=== PATIENT | female | born 1960 | race Caucasian/White ===

== ENCOUNTER 2019-03-01 13:16 | Emergency (ER) | payer BC, SELFPAY ==
[2019-03-01] MEDS ORDERED: NA CHLORIDE 0.9% 1,000 ML ONE (14:14)
[2019-03-01 14:31] LABS: Absolute Lymphocytes (CBC) 1.1 K/uL (0.7-4.9); Basophils % 0.7 % (0-1.3); Hematocrit 34.1 % (36.0-45.0); Lymphocytes % 15.5 % (15.3-44.8); RBC Red Blood Cell Count 4.67 M/uL (3.86-4.86)
[2019-03-01 14:43] LABS: Albumin 3.5 g/dL (3.4-5.0); Bilirubin Total 0.5 mg/dL (0.2-1.0); Magnesium 1.6 mg/dL (1.8-2.4); Protein, Total 7.4 g/dL (6.4-8.2)
[2019-03-01 14:48] LABS: Potassium 2.8 mmol/L (3.5-5.1)
[2019-03-01] MEDS ORDERED: MAGNESIUM SULFATE 1 gm IVPB 1 GM/100 ML BAG IV ONE (15:17)
[2019-03-01] MEDS ORDERED: NS KCL 20MEQ 1,000 ML IV ONE (15:17)
--- NOTE | 2019-03-01 15:22 | RAD REPORT ---
EXAM DESCRIPTION: CT - Abdomen Pelvis W Contrast - 03/01/2019 3:11 pm CLINICAL HISTORY: hx of gastric sleeve, retroperitoneal pain / left flank floridalma COMPARISON: None. TECHNIQUE: Biphasic, helical CT imaging of the abdomen and pelvis was performed following 100 ml non -ionic IV contrast. Oral contrast was given. All CT scans are performed using dose optimization technique as appropriate and may include automated exposure control or mA/KV adjustment according to patient size. FINDINGS: No suspicious findings in the lung bases. The liver, spleen, and pancreas show no suspicious findings. Cholecystectomy clips are present. No bi liary tree dilatation. Symmetric renal function is seen with no hydronephrosis or suspicious renal mass. No pyelonephritis o r acute parenchymal process. No bladder abnormalities. No adrenal abnormalities. Uterus is absent. Ov yarelis are absent or atrophic. No adnexal mass. Postsurgical changes are noted to the stomach. A very minimal hiatal hernia is present. No gastric wa ll thickening or edema. No dilated large or small bowel. Minimal diverticulosis. No acute GI process seen. No free air, free fluid or inflammatory stranding. No hernia, mass or bulky lymphadenopathy. No suspicious bony findings. Degenerative changes are present at the L5-S1 disc level. Disc bulge at L4-5. CT imaging is limited in the ability to assess central canal. IMPRESSION: Contrast enhanced CT abdomen and pelvis showing no acute finding. Nonacute findings det darlene in the body of the report.
--- NOTE | 2019-03-01 17:35 | ER ---
Nurse's Notes [facility] Name: Sri Lynn Age: 58 yrs Sex: Female : 1960 Arrival Date: 03/01/2019 Time: 13:19 Bed 7 Private MD: Diagnosis: Left flank pain;Inability to tolerate PO;Multiple metabolic derangements;Dehydration;Malnutrition;Hyponatremia;Hypokalemia;Hypochloremia;Hypomagnese maximo;Post surgical complication;Hx of laproscopic sleeve gastrectomy Presentation: 03/01 13:24 Presenting complaint: Vomiting and left mid back pain 9/10 upon waking today. Hx of hb hernia repair and gastric sleeve surgery in [place] 01/14. Transition of care: patient was not received from another setting of care. Onset of symptoms was March 01, 2019. Risk Assessment: Do you want to hurt yourself or someone else? Patient reports no desire to harm self or others. Care prior to arrival: None. 13:24 Method Of Arrival: Ambulatory hb 13:24 Acuity: LEN 3 hb 14:00 Initial Sepsis Screen: Does the patient meet any 2 criteria? No. Patient's initial jl7 sepsis screen is negative. Does the patient have a suspected source of infection? No. Patient's initial sepsis screen is negative. Historical: - Allergies: 13:29 Codeine; hb 13:29 PENICILLINS; hb - Home Meds: 13:29 lisinopril 20 mg Oral tab 1 tab once daily [Active]; hb - PMHx: 13:29 Hypertension; hb - PSHx: 13:29 Gastric Sleeve; Hernia repair; hb - Immunization history:: Adult Immunizations up to date. - Social history:: Smoking status: Patient/guardian denies using tobacco. - Ebola Screening: : Patient negative for fever greater than or equal to 101.5 degrees Fahrenheit, and additional compatible Ebola Virus Disease symptoms Patient denies travel to an Ebola-affected area in the 21 days before illness onset. Screenin:40 Abuse screen: Denies threats or abuse. Denies injuries from another. Nutritional jl7 screening: pt report inability to eat and drink for the past 7 weeks post gastric sleeve, ERD aware. Tuberculosis screening: No symptoms or risk factors identified. 14:19 Fall Risk IV access (20 points). Total Nielson Fall Scale indicates No Risk (0-24 pts). jl7 Assessment: 13:40 General: Appears in no apparent distress. uncomfortable, Behavior is calm, cooperative, jl7 appropriate for age. Pain: Complains of pain in right mid back Pain does not radiate. Pain currently is 5 out of 10 on a pain scale. Pain began 2-3 days ago. Is continuous. Neuro: Level of Consciousness is awake, alert, obeys commands, Oriented to person, place, time, situation. Cardiovascular: Patient's skin is warm and dry. Respiratory: Airway is patent Respiratory effort is even, unlabored, Respiratory pattern is regular, symmetrical. GI: Abdomen is round non-distended, Reports anorexia, nausea, vomiting, since 01/14/19. : Reports pain in right flank(s). Derm: Skin is pink, warm \\T\\ dry. 14:00 Reassessment: Pt reports Unable to provide urine sample at this time, states "I haven't jl7 had any fluids.". 14:40 Reassessment: Patient appears in no apparent distress at this time. No changes from jl7 previously documented assessment. Patient and/or family updated on plan of care and expected duration. Pain level reassessed. Patient is alert, oriented x 3, equal unlabored respirations, skin warm/dry/pink. 16:00 Reassessment: Patient appears in no apparent distress at this time. No changes from jl7 previously documented assessment. Patient and/or family updated on plan of care and expected duration. Pain level reassessed. Patient is alert, oriented x 3, equal unlabored respirations, skin warm/dry/pink. 16:47 Reassessment: Instructed pt as soon as fluids are done infusing we need to collect the jl7 urine, pt verbalized understanding. 17:34 Reassessment: Patient appears in no apparent distress at this time. Patient and/or jl7 family updated on plan of care and expected duration. Pain level reassessed. Patient is alert, oriented x 3, equal unlabored respirations, skin warm/dry/pink. Patient states feeling better. Patient states symptoms have improved. Vital Signs: 13:24 BP 99 / 75; Pulse 102; Resp 16; Temp 97.1(TE); Pulse Ox 96% on R/A; Weight 122.47 kg; hb Height 5 ft. 5 in. (165.10 cm); Pain 5/10; 15:00 BP 99 / 72; Pulse 84; Resp 16 S; Pulse Ox 98% on R/A; jl7 16:00 BP 97 / 70; Pulse 75; Resp 16 S; Pulse Ox 100% on R/A; jl7 16:51 BP 99 / 60; Pulse 75; Resp 16 S; Pulse Ox 97% on R/A; jl7 17:34 BP 91 / 52; Pulse 72; Resp 16 S; Pulse Ox 100% on R/A; jl7 13:24 Body Mass Index 44.93 (122.47 kg, 165.10 cm) hb ED Course: 13:19 Patient arrived in ED. mr 13:24 Arm band placed on. hb 13:27 Triage completed. hb 13:30 Nikolai Willson RN is Primary Nurse. jl7 13:41 Moshe Puente MD is Attending Physician. ps1 13:42 ED physician to see patient. jl7 14:20 Initial lab(s) drawn, by ED staff, sent to lab. Inserted saline lock: 20 gauge in right jl7 antecubital area, using aseptic technique. Blood collected. 14:23 Patient has correct armband on for positive identification. Placed in gown. Bed in low jl7 position. Call light in reach. Side rails up X 1. Pulse ox on. NIBP on. Warm blanket given. 15:11 CT Abd/Pelvis - PO and IV Contrast In Process Unspecified. EDMS 17:56 No provider procedures requiring assistance completed. Patient transferred, IV remains jl7 in place. intact, No redness/swelling at site. Administered Medications: 14:24 Drug: NS 0.9% 1000 ml Route: IV; Rate: 1 bolus; Site: right antecubital; jl7 15:30 Follow up: Response: No adverse reaction; IV Status: Completed infusion; IV Intake: jl7 1000ml 15:27 Drug: Potassium Chloride 20 mEq Route: IV; Rate: 1000 ml/hr; Site: right antecubital; jl7 17:33 Follow up: IV Status: Completed infusion; IV Intake: 1000ml jl7 15:28 Drug: Magnesium Sulfate 1 grams Route: IVPB; Infused Over: 1 hrs; Site: right jl7 antecubital; 16:28 Follow up: Response: No adverse reaction; IV Status: Completed infusion jl7 17:33 Drug: Banana Bag - (NS 0.9% 1000 ml, foLIC Acid 1 mg, Thiamine 100 mg, Multivitamin 1 jl7 amp) Route: IV; Rate: calculated rate; Site: right antecubital; 17:33 Follow up: IV Status: Infusion continued upon transfer jl7 Intake: 15:30 IV: 1000ml; Total: 1000ml. jl7 17:33 IV: 1000ml; Total: 2000ml. jl7 Outcome: 17:34 ER care complete, transfer ordered by . ps1 17:56 Transferred by ground EMS to [facility], Transfer form completed. jl7 X-rays sent w/ patient. 17:56 Condition: stable 17:56 Discharge instructions given to patient, Instructed on the need for transfer, Demonstrated understanding of instructions. 17:57 Patient left the ED. jl7 Signatures: Dispatcher [employer] [facility] Floyd Isadora Chyna Mandujano RN RN Nikolai Willson RN RN jl7 Moshe Puente MD MD ps1 Corrections: (The following items were deleted from the chart) 16:51 16:48 BP 90 / 48; Pulse 75bpm; Resp 16bpm; Spontaneous; Pulse Ox 100% RA; jl7 jl7
--- NOTE | 2019-03-01 17:35 | EDPHYS ---
Physician Documentation [facility] Name: Sri Lynn Age: 58 yrs Sex: Female : 1960 Arrival Date: 03/01/2019 Time: 13:19 Bed 7 Private MD: ED Physician Moshe Puente HPI: 03/01 14:16 This 58 yrs old Female presents to ER via Ambulatory with complaints of ps1 Vomiting. 14:16 patient had a gastric sleeve and hiatal hernia repair in [place] 7 weeks ago. States ps1 that she has had difficulty in eating and drinking since then and essentially not tolerating PO. She has lost 42 lbs since surgery. No fever. Complains of dehydration. . Historical: - Allergies: 13:29 Codeine; hb 13:29 PENICILLINS; hb - Home Meds: 13:29 lisinopril 20 mg Oral tab 1 tab once daily [Active]; hb - PMHx: 13:29 Hypertension; hb - PSHx: 13:29 Gastric Sleeve; Hernia repair; hb - Immunization history:: Adult Immunizations up to date. - Social history:: Smoking status: Patient/guardian denies using tobacco. - Ebola Screening: : Patient negative for fever greater than or equal to 101.5 degrees Fahrenheit, and additional compatible Ebola Virus Disease symptoms Patient denies travel to an Ebola-affected area in the 21 days before illness onset. ROS: 14:16 Eyes: Negative for injury, pain, redness, and discharge, Neck: Negative for injury, ps1 pain, and swelling, Cardiovascular: Negative for chest pain, palpitations, and edema, Respiratory: Negative for shortness of breath, cough, wheezing, and pleuritic chest pain, MS/Extremity: Negative for injury and deformity, Skin: Negative for injury, rash, and discoloration, Neuro: Negative for headache, weakness, numbness, tingling, and seizure. 14:16 Constitutional: Positive for fatigue, weight loss. 14:16 Abdomen/GI: Positive for nausea. 14:16 : Positive for flank pain. Exam: 14:16 Constitutional: This is a well developed, well nourished patient who is awake, alert, ps1 and in no acute distress. Head/Face: Normocephalic, atraumatic. Eyes: Pupils equal round and reactive to light, extra-ocular motions intact. Lids and lashes normal. Conjunctiva and sclera are non-icteric and not injected. Chest/axilla: Normal chest wall appearance and motion. Nontender with no deformity. No lesions are appreciated. Cardiovascular: Regular rate and rhythm. No gallops, murmurs, or rubs. Normal PMI, no JVD. No pulse deficits. Respiratory: Lungs have equal breath sounds bilaterally, clear to auscultation and percussion. No rales, rhonchi or wheezes noted. No increased work of breathing, no retractions or nasal flaring. Skin: Warm, dry with normal turgor. Normal color with no rashes, no lesions, and no evidence of cellulitis. MS/ Extremity: Pulses equal, no cyanosis. Neurovascular intact. Full, normal range of motion. 14:16 : CVA tenderness, on the left. Vital Signs: 13:24 BP 99 / 75; Pulse 102; Resp 16; Temp 97.1(TE); Pulse Ox 96% on R/A; Weight 122.47 kg; hb Height 5 ft. 5 in. (165.10 cm); Pain 5/10; 15:00 BP 99 / 72; Pulse 84; Resp 16 S; Pulse Ox 98% on R/A; jl7 16:00 BP 97 / 70; Pulse 75; Resp 16 S; Pulse Ox 100% on R/A; jl7 16:51 BP 99 / 60; Pulse 75; Resp 16 S; Pulse Ox 97% on R/A; jl7 17:34 BP 91 / 52; Pulse 72; Resp 16 S; Pulse Ox 100% on R/A; jl7 13:24 Body Mass Index 44.93 (122.47 kg, 165.10 cm) hb MDM: 14:07 Patient medically screened. ps1 17:35 Data reviewed: vital signs, nurses notes, lab test result(s), radiologic studies. ps1 Counseling: I had a detailed discussion with the patient and/or guardian regarding: the historical points, exam findings, and any diagnostic results supporting the discharge/admit diagnosis, lab results, the need to transfer to another facility, for higher level of care, [facility] does not immediately have the required specialist, Need for EGD. . 03/01 14:07 Order name: CBC with Diff; Complete Time: 14:50 ps1 03/01 14:07 Order name: CMP; Complete Time: 14:50 [facility] 03/01 14:07 Order name: Lipase; Complete Time: 14:50 [facility] 03/01 14:07 Order name: Lactate; Complete Time: 14:50 [facility] 03/01 14:07 Order name: Magnesium; Complete Time: 14:50 [facility] 03/01 17:41 Order name: Urine Microscopic Only [facility] 03/01 14:07 Order name: Urine Dipstick-Ancillary (obtain specimen); Complete Time: 17:40 [facility] 03/01 14:07 Order name: CT Abd/Pelvis - PO and IV Contrast; Complete Time: 16:00 ps1 Administered Medications: 14:24 Drug: NS 0.9% 1000 ml Route: IV; Rate: 1 bolus; Site: right antecubital; [facility] 15:30 Follow up: Response: No adverse reaction; IV Status: Completed infusion; IV Intake: [facility] 1000ml 15:27 Drug: Potassium Chloride 20 mEq Route: IV; Rate: 1000 ml/hr; Site: right antecubital; [facility] 17:33 Follow up: IV Status: Completed infusion; IV Intake: 1000ml [facility] 15:28 Drug: Magnesium Sulfate 1 grams Route: IVPB; Infused Over: 1 hrs; Site: right [facility] antecubital; 16:28 Follow up: Response: No adverse reaction; IV Status: Completed infusion [facility] 17:33 Drug: Banana Bag - (NS 0.9% 1000 ml, foLIC Acid 1 mg, Thiamine 100 mg, Multivitamin 1 jl7 amp) Route: IV; Rate: calculated rate; Site: right antecubital; 17:33 Follow up: IV Status: Infusion continued upon transfer [facility] Disposition: 03/01/19 17:34 Transfer ordered to [facility]. Diagnosis are Left flank pain, Inability to tolerate PO, Multiple metabolic derangements, Dehydration, Malnutrition, Hyponatremia, Hypokalemia, Hypochloremia, Hypomagnesemia, Post surgical complication, Hx of laproscopic sleeve gastrectomy. - Reason for transfer: Higher level of care. - Accepting physician is Jorge. - Condition is Stable. - Problem is new. - Symptoms have improved. Signatures: Dispatcher [employer] EDMS Chyna Lee RN RN Nikolai Willson RN RN jl7 Moshe Puente MD MD ps1 Corrections: (The following items were deleted from the chart) 17:57 17:34 03/01/2019 17:34 Transfer ordered to [facility]. Diagnosis is jl7 Left flank pain; Inability to tolerate PO; Multiple metabolic derangements; Dehydration; Malnutrition; Hyponatremia; Hypokalemia; Hypochloremia; Hypomagnesemia; Post surgical complication; Hx of laproscopic sleeve gastrectomy. Reason for transfer: Higher level of care. Accepting physician is Jorge. Condition is Stable. Problem is new. Symptoms have improved. ps1
[2019-03-01] MEDS ORDERED: FOLIC ACID 1 MG, MULTIVITAMINS INJ 10 ML, THIAMINE HCL 100 MG in NA CHLORIDE 0.9% 1,000 ML IV ONE (18:00)
[2019-03-01 18:16] VITALS: BP 91/52; O2SAT 100
[2019-03-01 18:30] VITALS: TEMP 97.2
[2019-03-01 19:47] LABS: Urine Bacteria 20-50 /HPF (<20); Urine Culture Reflex Order REFLEXED
== END 2019-03-01 17:57 | disposition short-term general hospital (02) ==
LOC: ER 13:16
DX: R63.3 Feeding difficulties (principal); E86.0 Dehydration; E88.81 Metabolic syndrome and other insulin resistance; E46 Unspecified protein-calorie malnutrition; E87.1 Hypo-osmolality and hyponatremia; E87.6 Hypokalemia; E87.8 Other disorders of electrolyte and fluid balance, not elsewhere classified; E83.42 Hypomagnesemia; Z98.84 Bariatric surgery status; I10 Essential (primary) hypertension; Z88.0 Allergy status to penicillin; Z88.5 Allergy status to narcotic agent
CPT/HCPCS: 36415; 74177; 80053; 81015; 83605; 83690; 83735; 85025; 87086; 87088; 96361; 96365; 96375; 99285; J3411; J3475; J7030; Q9967